=== PATIENT | female | born 1995 | race Two or more races ===

== ENCOUNTER 2019-02-26 23:19 | Emergency (ER) | payer MEDICAID ==
[~2019-02-26] VITALS: Ht 157.5 cm; Wt 63.5 kg
[2019-02-27 00:25] VITALS: BP 120/65
== END 2019-02-27 02:44 | disposition left against medical advice (07) ==
LOC: ER 23:22
DX: S41.012A Laceration without foreign body of left shoulder, initial encounter (principal); Z53.21 Procedure and treatment not carried out due to patient leaving prior to being seen by health care provider; W26.8XXA Contact with other sharp object(s), not elsewhere classified, initial encounter; Y93.89 Activity, other specified; Y92.89 Other specified places as the place of occurrence of the external cause; Y99.8 Other external cause status

== ENCOUNTER 2021-03-20 22:29 | Emergency (ER) | payer MEDICAID ==
[~2021-03-20] VITALS: Ht 162.6 cm; Wt 68.0 kg
[2021-03-21] MEDS ORDERED: KETOROLAC TROMETH 60MG/2ML VIAL IM ONE (03:00)
[2021-03-21 08:10] VITALS: BP 106/75
== END 2021-03-21 05:49 | disposition home or self-care (01) ==
LOC: ER 22:29
DX: S00.12XA Contusion of left eyelid and periocular area, initial encounter (principal); S00.11XA Contusion of right eyelid and periocular area, initial encounter; S80.212A Abrasion, left knee, initial encounter; S80.211A Abrasion, right knee, initial encounter; S50.312A Abrasion of left elbow, initial encounter; S50.311A Abrasion of right elbow, initial encounter; Y04.2XXA Assault by strike against or bumped into by another person, initial encounter; Y93.89 Activity, other specified; Y92.89 Other specified places as the place of occurrence of the external cause; Y99.8 Other external cause status
CPT/HCPCS: 70450; 72040; 72070; 72100